=== PATIENT | female | born 1965 | race Caucasian/White ===

== ENCOUNTER 2023-03-04 08:19 | Emergency (ER) | payer OTHER ==
[~2023-03-04] VITALS: Ht 165.1 cm; Wt 100.0 kg
[~2023-03-04 08:19] MED LIST: IBUP1TAB PO
[2023-03-04] MEDS ORDERED: ASPI81TA39 PO (08:22)
[2023-03-04] MEDS ORDERED: AMLO-257 PO (08:22)
[2023-03-04 08:25] VITALS: TEMP 98
[2023-03-04] MEDS ORDERED: ATOR40TA28 PO (08:25)
[2023-03-04] MEDS ORDERED: CETI-450 PO (08:25)
[2023-03-04] MEDS ORDERED: CARV25 PO (08:25)
[2023-03-04] MEDS ORDERED: BUPR-344 PO (08:25)
[2023-03-04 08:49] LABS: APPEARANCE,URINE CLEAR (CLEAR); BILIRUBIN,URINE NEGATIVE (NEGATIVE); COLOR,URINE LIGHT YELLOW (YELLOW); GLUCOSE, URINE (UA) NEGATIVE (NEGATIVE); KETONES,URINE NEGATIVE (NEGATIVE); LEUKOCYTE ESTERASE ,URINE NEGATIVE (NEGATIVE); NITRATE,URINE NEGATIVE (NEGATIVE); OCCULT BLOOD,URINE NEGATIVE (NEGATIVE); PROTEIN,URINE NEGATIVE (NEGATIVE)
[2023-03-04] MEDS ORDERED: KETOROLAC TROMETHAMINE 30 MG/ML VIAL IVP ONE (09:00)
[2023-03-04 09:13] LABS: BACTERIA,URINE None Seen /HPF (None Seen); RBC,URINE None Seen /HPF (0-2); SQUAMOUS EPITHELIAL CELL,UR Few /LPF (None Seen); WBC,URINE 0-2 /HPF (0-5)
[2023-03-04] MEDS ORDERED: KETOROLAC TROMETHAMINE 60 MG/2 ML VIAL IM ONE (10:00)
[2023-03-04] MEDS ORDERED: IBUP-1492 PO (11:29)
[2023-03-04 11:30] VITALS: BP 121/76; PULSE 82; RESP 16
== END 2023-03-04 11:45 | disposition home or self-care (01) ==
LOC: EMS 08:19
DX: R07.89 Other chest pain (principal); F32.A Depression, unspecified; E78.00 Pure hypercholesterolemia, unspecified; F17.210 Nicotine dependence, cigarettes, uncomplicated; F12.90 Cannabis use, unspecified, uncomplicated; F15.90 Other stimulant use, unspecified, uncomplicated; I11.9 Hypertensive heart disease without heart failure; Z59.00 Homelessness unspecified; Z98.890 Other specified postprocedural states; Z88.0 Allergy status to penicillin
CPT/HCPCS: 99283; 81001; 96372; J1885; 81003

== ENCOUNTER 2023-08-05 08:42 | Emergency (ER) | payer OTHER ==
[~2023-08-05] VITALS: Ht 165.1 cm; Wt 95.5 kg
[~2023-08-05 08:42] MED LIST changes: +AMLO-257 PO; +ASPI81TA39 PO; +ATOR40TA28 PO; +BUPR-344 PO; +CARV25 PO; +CETI-450 PO; +IBUP-1492 PO; -IBUP1TAB PO
[2023-08-05 08:47] VITALS: TEMP 98.3
[2023-08-05 09:24] LABS: COVID AG,FIA SOURCE NASAL SWAB
[2023-08-05 09:40] LABS: INFLUENZA TYPE A NEGATIVE FOR TYPE A (NEGATIVE); INFLUENZA TYPE B NEGATIVE FOR TYPE B (NEGATIVE)
[2023-08-05 09:41] LABS: SARS-COV2 (COVID) ANTIGEN,FIA Negative (Negative)
[2023-08-05 09:59] LABS: BASOPHILS % (AUTO) 0.5 % (0.0-2.0); EOSINOPHILS % (AUTO) 1.1 % (1.0-6.0); HEMATOCRIT 41.2 % (36-46); HEMOGLOBIN 13.8 g/dL (12.0-16.0); LYMPHOCYTES # (AUTO) 1.9 K/uL (1.0-4.8); LYMPHOCYTES % (AUTO) 25.9 % (22.0-44.0); MEAN CORPUSCULAR HEMOGLOBIN 29.6 pg (26.0-34.0); MEAN CORPUSCULAR HGB CONC 33.6 G/dL (31.0-37.0); MEAN CORPUSCULAR VOLUME 88 fL (80-100); MONOCYTES # (AUTO) 0.9 K/uL (0.1-1.0); MONOCYTES % (AUTO) 11.8 % (2.0-9.0); NEUTROPHILS # (AUTO) 4.6 K/uL (1.8-7.7); NEUTROPHILS % (AUTO) 60.7 % (40.0-70.0); PLATELET COUNT (AUTO) 148 K/uL (150-450); RED BLOOD CELL COUNT(AUTO) 4.68 MIL/uL (4.00-5.20); RED CELL DISTRIBUTION WIDTH 15.2 % (11.5-14.5); WHITE BLOOD COUNT (AUTO) 7.5 K/uL (4.5-11.0)
[2023-08-05 10:08] LABS: ANION GAP 8 mmol/L (8-16); CALCIUM, TOTAL 9.4 mg/dL (8.8-10.5); CARBON DIOXIDE 26 mmol/L (22-29); CHLORIDE 103 mmol/L (98-107); CREATININE 0.62 mg/dL (0.60-1.30); GLOMERULAR FILTR. RATE CALC > 60 mL/min (>60); GLUCOSE,RANDOM 105 mg/dL (70-110); POTASSIUM 3.4 mmol/L (3.5-5.1); SODIUM SERUM 137 mmol/L (136-145); UREA NITROGEN, BLOOD 7 mg/dL (7-18)
[2023-08-05 10:16] LABS: TROPONIN I-HIGH SENSITIVITY 8 ng/L (<51)
[2023-08-05] MEDS: KETOROLAC TROMETHAMINE 60 MG/2 ML VIAL IM ONE (12:09)
[2023-08-05] MEDS: PROMETHAZINE HCL/CODEINE 6.25-10MG/5ML SOLUTION UDCUP PO ONE (12:09)
[2023-08-05] MEDS ORDERED: AZIT250T9 PO (12:56)
[2023-08-05] MEDS ORDERED: ASPI-1444 PO (12:58)
[2023-08-05] MEDS: ALBUTEROL SULFATE HFA 90 MCG/PUFF 8 GM INHALER IH ONE (13:06)
[2023-08-05 13:07] VITALS: PULSE 78; RESP 20; O2SAT 98
[2023-08-05 13:08] VITALS: PULSE 88; RESP 20; O2SAT 98
[2023-08-05 13:10] VITALS: BP 129/87; PULSE 84; RESP 20
== END 2023-08-05 13:20 | disposition home or self-care (01) ==
LOC: EMS 08:42
DX: R07.89 Other chest pain (principal); R68.84 Jaw pain; F32.A Depression, unspecified; E78.00 Pure hypercholesterolemia, unspecified; I10 Essential (primary) hypertension; I25.2 Old myocardial infarction; F17.210 Nicotine dependence, cigarettes, uncomplicated; F12.90 Cannabis use, unspecified, uncomplicated; Z88.0 Allergy status to penicillin; Z59.00 Homelessness unspecified; Z20.822 Contact with and (suspected) exposure to COVID-19; Z98.890 Other specified postprocedural states
CPT/HCPCS: 99285; 71045; 87426; 80048; 84484; 85025; 87804; 36415; 94640; 93005; 96372; J1885